=== PATIENT | male | born 1990 | race Caucasian/White ===

== ENCOUNTER 2018-08-07 17:20 | Emergency (ER) | payer OTHER ==
[~2018-08-07] VITALS: Ht 188 cm; Wt 84.2 kg
[2018-08-07 17:41] VITALS: BP 122/74
[2018-08-07] MEDS ORDERED: dexamethasone sod phosphate 10mg/ml inj PO STA (19:42)
[2018-08-07] MEDS ORDERED: ibuprofen tablet 400 MG TABLET PO ONE (19:45)
[2018-08-07 20:13] LABS: BASOPHILS % (AUTO) 0.3 % (0-1); EOSINOPHILS % (AUTO) 0.1 % (0-6); HEMATOCRIT 42.7 % (42.0-52.0); HEMOGLOBIN 14.9 g/dl (14.0-17.9); LYMPHOCYTES # (AUTO) 2.2 X10'3 (1.1-4.8); LYMPHOCYTES % (AUTO) 12.8 % (21-51); MEAN CORPUSCULAR HEMOGLOBIN 30.1 PG (27.0-31.0); MEAN CORPUSCULAR HGB CONC 34.9 g/dL (33.0-36.5); MEAN CORPUSCULAR VOLUME 86.3 FL (78-98); MEAN PLATELET VOLUME 8.7 FL (7.4-10.4); MONOCYTES # (AUTO) 1.8 X10'3 (0-0.9); MONOCYTES % (AUTO) 10.7 % (2-12); NEUTROPHILS % (AUTO) 76.1 % (42-75); PLATELET COUNT 247 X10'3 (140-440); RED BLOOD COUNT 4.95 X10'6 (4.70-6.10); RED CELL DISTRIBUTION WIDTH 14.3 % (11.5-14.5); WHITE BLOOD COUNT 17.1 X10'3 (4.5-11.0)
[2018-08-07] MEDS ORDERED: HYDROcodone/acetaminophen 5mg/325mg tablet PO ONE (20:25)
[2018-08-07] MEDS ORDERED: clindamycin 600mg/D5W 50ml 50 ML IV ONE (20:25)
[2018-08-07 20:41] LABS: PLATELET ESTIMATE NORMAL; TOTAL CELLS COUNTED 100
[2018-08-07] MEDS ORDERED: CLIN-12 PO (20:49)
[2018-08-07] MEDS ORDERED: HYDR-4383 PO (21:02)
== END 2018-08-07 21:13 | disposition home or self-care (01) ==
LOC: ER 17:22
DX: J02.0 Streptococcal pharyngitis (principal); Z79.899 Other long term (current) drug therapy; Z60.2 Problems related to living alone
CPT/HCPCS: 36415; 85025; 87880; 96365; 99284; J1100; J3490

== ENCOUNTER 2019-01-05 13:11 | Emergency (ER) | payer SELFPAY ==
[~2019-01-05] VITALS: Ht 188 cm; Wt 85.0 kg
[~2019-01-05 13:11] MED LIST: CLIN-12 PO; HYDR-4383 PO
[2019-01-05 13:42] LABS: BASOPHILS # (AUTO) 0.1 X10'3 (0-0.2); BASOPHILS % (AUTO) 0.6 % (0-1); EOSINOPHILS # (AUTO) 0.2 X10'3 (0-0.9); HEMATOCRIT 48.4 % (42.0-52.0); HEMOGLOBIN 16.7 g/dl (14.0-17.9); LYMPHOCYTES # (AUTO) 2.5 X10'3 (1.1-4.8); LYMPHOCYTES % (AUTO) 26.3 % (21-51); MEAN CORPUSCULAR HEMOGLOBIN 30.8 PG (27.0-31.0); MEAN CORPUSCULAR HGB CONC 34.5 g/dL (33.0-36.5); MEAN CORPUSCULAR VOLUME 89.1 FL (78-98); MEAN PLATELET VOLUME 8.9 FL (7.4-10.4); MONOCYTES # (AUTO) 0.7 X10'3 (0-0.9); MONOCYTES % (AUTO) 7.7 % (2-12); NEUTROPHILS # (AUTO) 6.1 X10'3 (1.8-7.7); NEUTROPHILS % (AUTO) 63.4 % (42-75); PLATELET COUNT 287 X10'3 (140-440); RED BLOOD COUNT 5.43 X10'6 (4.70-6.10); RED CELL DISTRIBUTION WIDTH 13.4 % (11.5-14.5); WHITE BLOOD COUNT 9.7 X10'3 (4.5-11.0)
[2019-01-05 13:56] LABS: ALANINE AMINOTRANSFERASE 46 U/L (12-78); ALBUMIN 4.4 G/DL (3.4-5.0); ALBUMIN/GLOBULIN RATIO 1.2 (1.1-1.5); ALKALINE PHOSPHATASE 71 IU/L (46-116); ANION GAP 8 (8-16); ASPARTATE AMINO TRANSFERASE 17 U/L (10-37); BILIRUBIN,TOTAL 0.5 MG/DL (0.1-1.0); BLOOD UREA NITROGEN 14 MG/DL (7-18); BUN/CREATININE RATIO 9.9 (5.4-32.0); CALCIUM 9.5 MG/DL (8.5-10.1); CHLORIDE 104 MMOL/L (99-107); CREATININE 1.41 MG/DL (0.60-1.10); GLUCOSE 87 MG/DL (70-104); SODIUM 139 MMOL/L (135-145); TOTAL CARBON DIOXIDE 26.7 MMOL/L (24-32); TOTAL PROTEIN 8.2 G/DL (6.4-8.2); eGFR 61 ML/MIN
[2019-01-05 14:02] LABS: PARTIAL THROMBOPLASTIN TIME 29 SECONDS (22-32)
[2019-01-05] MEDS ORDERED: normal saline 1000ML IV soln IVB ONE (14:10)
[2019-01-05 15:02] VITALS: BP 115/70
== END 2019-01-05 15:08 | disposition home or self-care (01) ==
LOC: ER 13:11
DX: T67.5XXA Heat exhaustion, unspecified, initial encounter (principal); R55 Syncope and collapse; E86.0 Dehydration; Z79.82 Long term (current) use of aspirin; Z79.899 Other long term (current) drug therapy; Z60.2 Problems related to living alone; X58.XXXA Exposure to other specified factors, initial encounter; Y93.89 Activity, other specified; Y92.89 Other specified places as the place of occurrence of the external cause; Y99.0 Civilian activity done for income or pay
CPT/HCPCS: 36415; 71045; 80053; 84484; 85025; 85610; 85730; 93005; 96360; 99284; J7030

== ENCOUNTER 2019-05-03 09:24 | Emergency (ER) | payer SELFPAY ==
[~2019-05-03] VITALS: Ht 188 cm; Wt 88.5 kg
[2019-05-03 09:30] VITALS: BP 118/80
[2019-05-03] MEDS ORDERED: HYDR28CR14 TOP (09:34)
== END 2019-05-03 09:40 | disposition home or self-care (01) ==
LOC: ER 09:24
DX: L25.9 Unspecified contact dermatitis, unspecified cause (principal); F12.90 Cannabis use, unspecified, uncomplicated; F10.99 Alcohol use, unspecified with unspecified alcohol-induced disorder; Z60.2 Problems related to living alone; Z79.899 Other long term (current) drug therapy; Y90.9 Presence of alcohol in blood, level not specified
CPT/HCPCS: 99282

== ENCOUNTER 2019-05-25 14:29 | Emergency (ER) | payer OTHER, MEDICAID ==
[~2019-05-25] VITALS: Ht 188 cm; Wt 88.0 kg
[~2019-05-25 14:29] MED LIST changes: +HYDR28CR14 TOP
[2019-05-25 14:34] VITALS: BP 121/74
== END 2019-05-25 15:46 | disposition home or self-care (01) ==
LOC: ER 14:30
DX: M54.5 Low back pain (principal); Q76.0 Spina bifida occulta; F12.90 Cannabis use, unspecified, uncomplicated; Z60.2 Problems related to living alone; Z79.2 Long term (current) use of antibiotics; Z79.899 Other long term (current) drug therapy; V69.9XXA Occupant (driver) (passenger) of heavy transport vehicle injured in unspecified traffic accident, initial encounter; Y93.89 Activity, other specified; Y92.410 Unspecified street and highway as the place of occurrence of the external cause; Y99.8 Other external cause status
CPT/HCPCS: 72100; 99283

== ENCOUNTER 2022-11-26 08:06 | Emergency (ER) | payer MEDICAID, OTHER ==
[~2022-11-26] VITALS: Ht 188 cm; Wt 97.7 kg
[2022-11-26 08:13] VITALS: BP 145/77
[2022-11-26] MEDS ORDERED: IBUP-1986 PO (09:06)
[2022-11-26] MEDS ORDERED: AMOX-117 PO (09:06)
[2022-11-26] MEDS ORDERED: ketorolac trometh inj. 60 MG/2 ML VIAL IM ONE (09:10)
[2022-11-26] MEDS ORDERED: TRIA15CR61 TOP (09:38)
== END 2022-11-26 09:32 | disposition home or self-care (01) ==
LOC: ER 08:06
DX: H72.92 Unspecified perforation of tympanic membrane, left ear (principal); H60.92 Unspecified otitis externa, left ear; L40.9 Psoriasis, unspecified; F12.90 Cannabis use, unspecified, uncomplicated; Z72.89 Other problems related to lifestyle; Z79.899 Other long term (current) drug therapy
CPT/HCPCS: 96372; 99284; J1885

== ENCOUNTER 2023-10-24 21:15 | Emergency (ER) | payer OTHER ==
[~2023-10-24] VITALS: Ht 185.4 cm; Wt 95.5 kg
[~2023-10-24 21:15] MED LIST changes: +IBUP-1986 PO
[2023-10-24 22:02] VITALS: BP 136/83; PULSE 104; RESP 16; TEMP 98.2; O2SAT 97
== END 2023-10-24 22:06 ==
LOC: ER 21:16
DX: Z02.89 Encounter for other administrative examinations (principal); Z60.2 Problems related to living alone; F12.90 Cannabis use, unspecified, uncomplicated
CPT/HCPCS: 99281; 99283